=== PATIENT | female | born 1985 | race American Indian/Alaskan Native ===

== ENCOUNTER 2018-11-16 08:50 | Emergency (ER) | payer MEDICARE ==
--- NOTE | 2018-11-16 09:13 | Emergency Department Report ---
ED Abdominal Pain HPI - General Chief Complaint: Abdominal Pain Stated Complaint: STOMACH PAIN Time Seen by Provider: 11/16/18 09:07 Source: patient Mode of arrival: Ambulatory Limitations: No Limitations - History of Present Illness Initial Comments: Patient is 33 years old female with no significant past medical history. Patient presented to the ER complaining of diffuse, crampy abdominal pain with no radiation. Patient stated that pain associated with watery diarrhea, no mucus or blood. Patient denied any fever or chills. No nausea or vomiting. MD Complaint: abdominal pain -: days(s) Location: diffuse Radiation: none Migration to: no migration Severity: moderate Severity scale (0 -10): 8 Quality: cramping Consistency: intermittent - Related Data Allergies Allergy/AdvReac Type Severity Reaction Status Date / Time No Known Allergies Allergy Unverified 11/16/18 08:53 ED Review of Systems ROS: Stated complaint: STOMACH PAIN Other details as noted in HPI Comment: All other systems reviewed and negative Constitutional: denies: chills, fever Respiratory: denies: cough, shortness of breath, SOB with exertion Cardiovascular: denies: chest pain, palpitations Gastrointestinal: abdominal pain, diarrhea. denies: nausea, vomiting, constipation, hematemesis, melena, hematochezia Genitourinary: denies: urgency, dysuria Musculoskeletal: denies: back pain Neurological: denies: headache, weakness ED Past Medical Hx - Past Medical History Previous Medical History?: Yes Additional medical history: Cerebral Palsy - Surgical History Past Surgical History?: Yes Additional Surgical History: MILIEU COORDINATOR shunt - Social History Smoking Status: Never Smoker Substance Use Type: Prescribed ED Physical Exam - General Limitations: No Limitations General appearance: alert, in no apparent distress - Head Head exam: Present: atraumatic, normocephalic, normal inspection - Eye Eye exam: Present: normal appearance, PERRL - ENT ENT exam: Present: normal exam, normal orophraynx, mucous membranes moist - Neck Neck exam: Present: normal inspection, full ROM. Absent: tenderness, me ningismus, lymphadenopathy, thyromegaly - Respiratory Respiratory exam: Present: normal lung sounds bilaterally - Cardiovascular Cardiovascular Exam: Present: regular rate, normal rhythm, normal heart sounds - GI/Abdominal GI/Abdominal exam: Present: soft, normal bowel sounds. Absent: distended, tenderness, guarding, rebound, rigid, hypoactive bowel sounds, organomegaly, mass, bruit, pulsatile mass, hernia - Extremities Exam Extremities exam: Present: normal inspection, full ROM, normal capillary refill. Absent: pedal edema, calf tenderness - Back Exam Back exam: Present: normal inspection, full ROM. Absent: tenderness, CVA tenderness (R), CVA tenderness (L), muscle spasm, paraspinal tenderness, vertebral tenderness - Neurological Exam Neurological exam: Present: alert, oriented X3, CN II-XII intact, normal gait, reflexes normal - Skin Skin exam: Present: warm, intact, normal color ED Course Vital Signs 11/16/18 08:56 Temperature 97.6 F Pulse Rate 118 H Respiratory 18 Rate Blood Pressure 154/88 O2 Sat by Pulse 98 Oximetry ED Medical Decision Making - Lab Data Result diagrams: 11/16/18 09:18 11/16/18 09:16 - Radiology Data Radiology results: report reviewed Referring Physician: KAMILLA PETER Patient Name: OMAYRA QUINTEROS Date of : 1985 Sex: Female Report Date: 2018-11-16 Report Status: Finalized Findings [facility] [address] [place] [address] XRay Report Signed Patient: OMAYRA QUINTEROS MR#: [id number] : 1985 Acct:[id number] Age/Sex: 33 / F ADM Date: 11/16/18 Loc: ED Attending Dr: Ordering Physician: KAMILLA PETER Date of Service: 11/16/18 Procedure(s): XR abd series w cxr 1V Accession Number(s): [id number] cc: KAMILLA PETER Fluoro Time In Minutes: PROCEDURE: XR ABD SERIES W CXR 1V TECHNIQUE: Single frontal view of the chest and 4 views of the abdomen HISTORY: abdominal pain COMPARISONS: None FINDINGS: The cardiomediastinal silhouette is normal in appearance. The lungs are clear without focal consolidation. No pleural effusion or pneumothorax. Nonobstructive bowel gas pattern. No free air. There are phleboliths within the pelvis. There is a ventriculoperitoneal shunt catheter with its tip in the left upper quadrant No acute bony or soft tissue abnormality. IMPRESSION: Nonobstructive bowel gas pattern. No acute cardiopulmonary disease. This document is electronically signed by Ofelia Lei MD., November 16 2018 11:12:38 AM ET Transcribed By: FAUSTO Dictated By: OFELIA LIE MD Electronically Authenticated By: OFELIA LEI MD Signed Date/Time: 11/16/18 1114 DD/ TD/TT: 11/16/18 1049 - Medical Decision Making Patient is 33 years old female with no significant past medical history. Patient presented to the ER complaining of diffuse, crampy abdominal pain with no radiation. Patient stated that pain associated with watery diarrhea, no mucus or blood. Patient denied any fever or chills. No nausea or vomiting. Patient remained stable in the emergency room. Labs reviewed and is unremarkable. Acute abdomen series is negative for acute finding. Patient's symptoms is mildly abdominal cramping and diarrhea with no clinical or laboratory evidence of acute abdomen including appendicitis. I advised patient to drink more fluid as much as she can and to follow-up with her primary care physician in the next 2-3 days and to return to the ER if her symptoms have not improved. Critical care attestation.: If time is entered above; I have spent that time in minutes in the direct care of this critically ill patient, excluding procedure time. ED Disposition Clinical Impression: Abdominal pain, Diarrhea Disposition: -01 TO HOME OR SELFCARE Is pt being admited?: No Condition: Stable Instructions: Abdominal Pain (ED), Acute Diarrhea (ED) Referrals: CORINNE DEAN [Primary Care Provider] - 3-5 Days
[2018-11-16 09:29] LABS: Basophils % (Auto) 0.1 % (0.0-1.8); Eosinophils % (Auto) 0.2 % (0.0-4.3); Hematocrit 44.5 % (30.3-42.9); Hemoglobin 15.1 gm/dl (10.1-14.3); Lymphocytes # (Auto) 1.4 K/mm3 (1.2-5.4); Lymphocytes % (Auto) 16.3 % (13.4-35.0); Mean Corpuscular HGB Conc 34 % (30-34); Mean Corpuscular Volume 91 fl (79-97); Monocytes # (Auto) 0.7 K/mm3 (0.0-0.8); Monocytes % (Auto) 7.6 % (0.0-7.3); Platelet Count 136 K/mm3 (140-440); Red Blood Count 4.87 M/mm3 (3.65-5.03)
[2018-11-16 09:51] LABS: Albumin 3.9 g/dL (3.9-5); BUN/Creatinine Ratio 18; Blood Urea Nitrogen 11 mg/dL (7-17); Calcium 8.9 mg/dL (8.4-10.2); Hemolysis Index 151
[2018-11-16 09:53] LABS: Bilirubin,Direct < 0.2 mg/dL (0-0.2)
[2018-11-16 10:00] LABS: Alanine Aminotransferase 23 units/L (7-56)
[2018-11-16 10:05] LABS: Bacteria,Urine 4+ /HPF (Negative); Bilirubin,Urine NEG (Negative); Blood,Urine NEG (Negative); Color,Urine Yellow (Yellow); Mucus,Urine 1+ /HPF; Urobilinogen,Urine < 2.0 mg/dL (<2.0)
[2018-11-16 10:09] LABS: HCG Qualitative,Urine Negative (Negative)
--- NOTE | 2018-11-16 11:14 | XRay Report ---
PROCEDURE: XR ABD SERIES W CXR 1V TECHNIQUE: Single frontal view of the chest and 4 views of the abdomen HISTORY: abdominal pain COMPARISONS: None FINDINGS: The cardiomediastinal silhouette is normal in appearance. The lungs are clear without focal consolidation. No pleural effusion or pneumothorax. Nonobstructive bowel gas pattern. No free air. There are phleboliths within the pelvis. There is a ventriculoperitoneal shunt catheter with its tip in the left upper quadrant No acute bony or soft tissue abnormality. IMPRESSION: Nonobstructive bowel gas pattern. No acute cardiopulmonary disease. This document is electronically signed by Ofelia Sanderson MD., November 16 2018 11:12:38 AM ET
[2018-11-16 11:50] VITALS: BP 152/76
== END 2018-11-16 11:49 | disposition home or self-care (01) ==
LOC: ED 08:50
DX: R10.84 Generalized abdominal pain (principal); R19.7 Diarrhea, unspecified
CPT/HCPCS: 36415; 74022; 80048; 80076; 81001; 81025; 83690; 85025